=== PATIENT | male | born 1965 ===

== ENCOUNTER 2016-11-29 12:27 | Emergency (ER) | payer BC, OTHER ==
[2016-11-29 12:42] VITALS: BP 141/83; PULSE 89; RESP 20; TEMP 98; O2SAT 98
[2016-11-29 12:43] VITALS: BMI 39.1
--- NOTE | 2016-11-29 13:35 | ED PDOC ---
HPI: Back Time Seen by Provider: 11/29/16 12:35 Chief Complaint (Nursing): Back Pain Chief Complaint (Provider): Chronic left back pain radiating to the left leg History Per: Patient History/Exam Limitations: no limitations Onset/Duration Of Symptoms: Days Current Symptoms Are (Timing): Still Present Full Body Front + Back: 1 - Pain 2 - Radiation Previous Symptoms: Back Pain Associated Symptoms: None Exacerbating Factor(s): Movement Additional Complaint(s): Pt states he is a patient of Dr. Chen. Pt states he had an epidural and it is not helping. Pt states the pain is same as previous. No numbness/tingling. No bladder or bowel incontinence. Pt gets #120 percocet 10mg every month. States he took one this morning but it did not help. Past Medical History Reviewed: Historical Data, Nursing Documentation, Vital Signs Vital Signs: Last Vital Signs Temp 98.0 F 11/29/16 12:42 Pulse 89 11/29/16 12:42 Resp 20 11/29/16 12:42 BP 141/83 11/29/16 12:42 Pulse Ox 98 11/29/16 12:42 - Medical History PMH: No Chronic Diseases - Surgical History Surgical History: Appendectomy - Family History Family History: States: No Known Family Hx - Living Arrangements Living Arrangements: With Family - Social History Current smoker - smoking cessation education provided: No Alcohol: None Drugs: Denies - Home Medications Home Medications: Ambulatory Orders Medication Instructions Recorded Canagliflozin [Invokana] 11/29/16 Clonazepam [Klonopin] 11/29/16 Dexlansoprazole [Dexilant] 11/29/16 Ergocalciferol (Vitamin D2) 11/29/16 [Vitamin D2] Levothyroxine [Levoxyl] 0.025 mg PO 11/29/16 Losartan Potassium 50 mg PO 11/29/16 Metformin HCl [Metformin HCl ER] 11/29/16 Mirtazapine [Remeron] 11/29/16 Rosuvastatin Calcium [Crestor] 11/29/16 Zolpidem [Ambien] 11/29/16 - Allergies Allergies/Adverse Reactions: Allergies Allergy/AdvReac Type Severity Reaction Status Date / Time No Known Allergies Allergy Verified 11/29/16 12:42 Review of Systems ROS Statement: Except As Marked, All Systems Reviewed And Found Negative Musculoskeletal: Positive for: Back Pain Physical Exam - Reviewed Nursing Documentation Reviewed: Yes Vital Signs Reviewed: Yes - Physical Exam Appears: Positive for: Well, Non-toxic, No Acute Distress Head Exam: Positive for: ATRAUMATIC, NORMAL INSPECTION, NORMOCEPHALIC Skin: Positive for: Normal Color, Warm, DRY Eye Exam: Positive for: Normal appearance ENT: Positive for: Normal ENT Inspection Neck: Positive for: Normal, Painless ROM Cardiovascular/Chest: Positive for: Regular Rate, Rhythm Respiratory: Positive for: Normal Breath Sounds. Negative for: Accessory Muscle Use Back: Positive for: Normal Inspection, Muscle Spasm (Left sided ). Negative for : Vertebral Tenderness Extremity: Positive for: Normal ROM. Negative for: Tenderness Neurologic/Psych: Positive for: Alert, Oriented - ECG O2 Sat by Pulse Oximetry: 98 Pulse Ox Interpretation: Normal Medical Decision Making Medical Decision Making: Dr. Chen called and no return call in ER. PT given flexeril and toradol but reports no change in pain. Pt given IM morphine. Discussed due to chronic pain and monthly rx for narcotics no additional medications can be given in the ER. Disposition - Clinical Impression Clinical Impression: Chronic back pain - Patient ED Disposition Is Patient to be Admitted: No Counseled Patient/Family Regarding: Diagnosis, Need For Followup - Disposition Referrals: [facility] [Outside] Disposition: Routine/Home Disposition Time: 13:43 Condition: GOOD Instructions: Chronic Back Pain (ED)
== END 2016-11-29 13:50 | disposition home or self-care (01) ==
LOC: H.ER 12:27
DX: M54.9 Dorsalgia, unspecified (principal); G89.29 Other chronic pain; M79.605 Pain in left leg

== ENCOUNTER 2016-11-30 13:48 | Emergency (ER) | payer OTHER ==
[2016-11-30 13:48] VITALS: BMI 39.1
[2016-11-30 13:57] VITALS: BP 155/100; PULSE 92; RESP 16; TEMP 98; O2SAT 100
--- NOTE | 2016-11-30 14:50 | ED PDOC ---
HPI: General Adult Time Seen by Provider: 11/30/16 14:14 Chief Complaint (Nursing): Back Pain History Per: Patient Additional Complaint(s): Pt. states 2 weeks ago he received an epidural from Dr. Lynn, pain management, due to his chronic lower back pain. Pt. states pain starts in L lower back and radiates down the L leg. Pt. was seen here yesterday for same and achieved some analgesia while in ED but pain returned while at home. Pt. states he does get an Rx for Percocet which he has at home. Denies trauma, fever, abdominal pain, N /V, hematuria, dysuria, incontinence, saddle parethesias. Past Medical History Reviewed: Historical Data, Nursing Documentation, Vital Signs Vital Signs: Last Vital Signs Temp 98.0 F 11/30/16 13:52 Pulse 92 H 11/30/16 13:52 Resp 16 11/30/16 13:52 BP 155/100 H 11/30/16 13:52 Pulse Ox 100 11/30/16 14:52 - Medical History PMH: Back Problems, HTN, Hypercholesterolemia, Hypothyroidism - Surgical History Surgical History: Appendectomy - Family History Family History: States: No Known Family Hx - Home Medications Home Medications: Ambulatory Orders Medication Instructions Recorded Canagliflozin [Invokana] 11/29/16 Clonazepam [Klonopin] 11/29/16 Dexlansoprazole [Dexilant] 11/29/16 Ergocalciferol (Vitamin D2) 11/29/16 [Vitamin D2] Levothyroxine [Levoxyl] 0.025 mg PO 11/29/16 Losartan Potassium 50 mg PO 11/29/16 Metformin HCl [Metformin HCl ER] 11/29/16 Mirtazapine [Remeron] 11/29/16 Rosuvastatin Calcium [Crestor] 11/29/16 Zolpidem [Ambien] 11/29/16 Lidocaine 5% [Lidoderm] 1 ea TD DAILY PRN #10 patch 11/30/16 Methylprednisolone [Medrol Dose 4 mg PO DAILY #21 mg 11/30/16 Pack (21 tabs)] - Allergies Allergies/Adverse Reactions: Allergies Allergy/AdvReac Type Severity Reaction Status Date / Time No Known Allergies Allergy Verified 11/30/16 13:52 Review of Systems ROS Statement: Except As Marked, All Systems Reviewed And Found Negative Musculoskeletal: Positive for: Back Pain Physical Exam - Reviewed Nursing Documentation Reviewed: Yes Vital Signs Reviewed: Yes - Physical Exam Appears: Positive for: Well, In Acute Distress (moderate painful distress) Head Exam: Positive for: ATRAUMATIC, NORMAL INSPECTION, NORMOCEPHALIC Skin: Positive for: Normal Color, Warm. Negative for: Rash Eye Exam: Positive for: Normal appearance Neck: Positive for: Normal, Painless ROM Gastrointestinal/Abdominal: Positive for: Normal Exam, Bowel Sounds, Soft. Negative for: Tenderness Back: Positive for: Normal Inspection, Muscle Spasm (L sided paralumbar tenderness). Negative for: L CVA Tenderness, R CVA Tenderness, Vertebral Tenderness Extremity: Positive for: Normal ROM Neurologic/Psych: Positive for: Alert, Oriented - ECG O2 Sat by Pulse Oximetry: 100 - Progress ED Course And Treament: Morphine 4mg IV, zofran 4mg, toradol 15mg IV, valium 10mg PO given. Disposition - Clinical Impression Clinical Impression: Chronic lower back pain - Disposition Referrals: [facility] [Outside] Disposition Time: 15:30 Condition: STABLE Prescriptions: Lidocaine 5% [Lidoderm] 1 ea TD DAILY PRN #10 patch PRN Reason: pain Methylprednisolone [Medrol Dose Pack (21 tabs)] 4 mg PO DAILY #21 mg Instructions: Lumbar Radiculopathy (ED) Forms: [facility] ED School/Work Excuse Print Language: [place]
--- NOTE | 2016-11-30 15:29 | RAD ---
PROCEDURE: Radiographs of the Lumbar Spine. HISTORY: pain COMPARISON: No prior. FINDINGS: BONES: Normal alignment. No listhesis. No fracture. DISC SPACES: Disc space narrowing at anterior spur formation at L5-S1. OTHER FINDINGS: None. IMPRESSION: Disc space narrowing at anterior spur formation at L5-S1.
== END 2016-11-30 19:10 | disposition home or self-care (01) ==
LOC: H.ER 13:48
DX: M54.5 Low back pain (principal); I10 Essential (primary) hypertension; E78.00 Pure hypercholesterolemia, unspecified; E03.9 Hypothyroidism, unspecified